=== PATIENT | male | born 1955 | race Caucasian/White ===

== ENCOUNTER 2019-10-14 07:31 | Emergency (ER) | payer OTHER ==
[2019-10-14 07:39] VITALS: BP 106/71; PULSE 65
[2019-10-14 08:10] LABS: CHLORIDE,CL 105 mmol/L (98-107); SODIUM,NA 140 mmol/L (136-145)
[2019-10-14] MEDS: Tamsulosin 0.4 MG Cap.ER PO ONE (09:02)
[2019-10-14] MEDS: Sodium Chloride 0.9% 1,000 ML IV ONE (09:03)
[2019-10-14] MEDS: Ketorolac 30 MG/ML SDV IVPUSH ONE (09:03)
--- NOTE | 2019-10-14 10:05 | EDM.PDOC ---
ED HPI GENERAL MEDICAL PROBLEM - General Chief Complaint: Flank Pain Stated Complaint: left low back flank pain Time Seen by Provider: 10/14/19 07:45 Source of Information: Reports: Patient History Limitations: Reports: No Limitations - History of Present Illness INITIAL COMMENTS - FREE TEXT/NARRATIVE: Left flank pain that started this AM Extends forward to groin Onset: Gradual Duration: Hour(s):, Getting Worse Location: Reports: Back, Pelvis Quality: Reports: Stabbing Severity: Moderate Treatments GLOBAL SAFETY OFFICER: Reports: NSAIDS Left Lower Flank Pain Score (Numeric/FACES): 10 - Related Data Allergies Allergy/AdvReac Type Severity Reaction Status Date / Time azithromycin Allergy UNKNOWN Verified 10/14/19 07:41 shellfish derived Allergy Airway Verified 10/14/19 07:43 Tightness Home Meds: Home Meds EPINEPHrine [Epipen] 0.3 mg IM ASDIRECTED PRN 04/11/15 [History] Montelukast Sodium 10 mg PO DAILY 04/11/15 [History] Thyroid,Pork [[place] Thyroid] 60 mg PO DAILY 04/11/15 [History] Metoprolol Succinate 50 mg PO DAILY 10/14/19 [History] Social & Family History - Tobacco Use Smoking Status *Q: Never Smoker Second Hand Smoke Exposure: No - Caffeine Use Caffeine Use: Reports: Coffee - Recreational Drug Use Recreational Drug Use: No ED ROS GENERAL - Review of Systems Review Of Systems: See Below : Reports: Flank Pain ED EXAM, RENAL/ - Physical Exam Exam: See Below Exam Limited By: No Limitations General Appearance: Mild Distress GI/Abdominal: Tender (Male) Exam: Other (Left flank pain) Course - Vital Signs Last Recorded V/S: Last Vital Signs Temp 97.7 F 10/14/19 07:32 Pulse 65 10/14/19 07:32 Resp 20 10/14/19 07:32 BP 106/71 10/14/19 07:32 Pulse Ox 98 10/14/19 07:32 - Orders/Labs/Meds Orders: Active Orders 24 hr Category Date Time Status Abdomen Pelvis wo Cont [CT] Stat Exams 10/14/19 08:27 Taken Labs: Laboratory Tests 10/14/19 10/14/19 10/14/19 Range/Units 08:00 08:00 08:13 WBC 7.2 (4.0-10.2) K/uL RBC 4.54 (4.33-5.41) M/uL Hgb 14.6 (13.1-16.8) g/dL Hct 43.4 (39.0-49.0) % MCV 95.6 (84.0-98.0) fL MCH 32.2 (28.2-33.3) pg MCHC 33.6 (31.7-36.0) g/dL RDW 12.3 (11.2-14.1) % Plt Count 235 (150-350) K/uL Neut % (Auto) 76.7 (45.0-80.0) % Lymph % (Auto) 17.5 (10.0-50.0) % [place] % (Auto) 5.2 (2.0-14.0) % Eos % (Auto) 0.3 (0.0-5.0) % Baso % (Auto) 0.3 (0.0-2.0) % Neut # (Auto) 5.51 (1.40-7.00) K/uL Lymph # (Auto) 1.26 (0.50-3.50) K/uL [place] # (Auto) 0.37 (0.00-1.00) K/uL Eos # (Auto) 0.02 (0.00-0.50) K/uL Baso # (Auto) 0.02 (0.00-0.20) K/uL Sodium 140 (136-145) mmol/L Potassium 4.3 (3.5-5.1) mmol/L Chloride 105 (98-107) mmol/L Carbon Dioxide 24.6 (21.0-32.0) mmol/L BUN 24 H (7-18) mg/dL Creatinine 1.15 (0.51-1.17) mg/dL Est Cr Clr Drug Dosing 60.10 mL/min Estimated GFR (MDRD) > 60 mL/min Glucose 167 H (74-106) mg/dL Calcium 8.9 (8.5-10.1) mg/dL Specimen Type Urinblad Urine Color Dark yellow Urine Appearance Slightly cloudy Urine pH 5.5 (5.0-9.0) Ur Specific [place] >= 1.030 (1.005-1.030) Urine Protein 30 H (NEGATIVE) mg/dL Urine Glucose (UA) Negative (NEGATIVE) mg/dL Urine Ketones 15 H (NEGATIVE) mg/dL Urine Occult Blood Large H (NEGATIVE) Urine Nitrite Negative (NEGATIVE) Urine Bilirubin Negative (NEGATIVE) Urine Urobilinogen 0.2 (0.2-1.0) E.U./dL Ur Leukocyte Esterase Negative (NEGATIVE) Urine RBC 50-75 H /HPF Urine WBC 0-5 /HPF Ur Epithelial Cells Rare /LPF Urine Bacteria Few (NONE TO FEW) /HPF Urine Mucus Moderate H (NEGATIVE) /LPF Meds: Medications Discontinued Medications Generic Name Dose Route Start Last Admin Trade Name Freq PRN Reason Stop Dose Admin Sodium Chloride 1,000 mls @ 1,000 mls/hr 10/14/19 08:56 10/14/19 09:03 Normal Saline IV 10/14/19 09:55 1,000 mls/hr .BOLUS ONE Administration Ketorolac Tromethamine 30 mg 10/14/19 08:56 10/14/19 09:03 Toradol IVPUSH 10/14/19 08:57 30 mg ONETIME ONE Administration Tamsulosin HCl 0.4 mg 10/14/19 08:57 10/14/19 09:02 Flomax PO 10/14/19 08:58 0.4 mg ONETIME ONE Administration - Re-Assessments/Exams Free Text/Narrative Re-Assessment/Exam: 10/14/19 09:59 CT: 4 X 6 mm stone proximal left ureter Pt given IVF, IV Toradol and PO Flomax in ER Departure - Departure Time of Disposition: 10:30 Disposition: Home, Self-Care 01 Clinical Impression: Kidney stone on left side - Discharge Information *PRESCRIPTION DRUG MONITORING PROGRAM REVIEWED*: Not Applicable *COPY OF PRESCRIPTION DRUG MONITORING REPORT IN PATIENT SHAUN: Not Applicable Instructions: Kidney Stones, [id number] Additional Instructions: Follow up in clinic Rx Flomax One pill daily Rx Hydrocodone 5/325 One pill every 6 hours as needed for pain Sepsis Event Note - Evaluation Sepsis Screening Result: No Definite Risk - Focused Exam Vital Signs: Vital Signs Temp Pulse Resp BP Pulse Ox 10/14/19 07:32 97.7 F 65 20 106/71 98 Date Exam was Performed: 10/14/19 Time Exam was Performed: 09:55 - My Orders Last 24 Hours: My Active Orders 10/14/19 08:27 Abdomen Pelvis wo Cont [CT] Stat - Assessment/Plan Last 24 Hours: My Active Orders 10/14/19 08:27 Abdomen Pelvis wo Cont [CT] Stat
== END 2019-10-14 10:21 | disposition home or self-care (01) ==
LOC: LL.ED 07:31
DX: N13.2 Hydronephrosis with renal and ureteral calculous obstruction (principal); Z88.1 Allergy status to other antibiotic agents; Z91.013 Allergy to seafood; Z79.899 Other long term (current) drug therapy
CPT/HCPCS: 36415; 74176; 80048; 81001; 85025; 96361; 96374; 99284-25; A9270-GY; J1885; J7030

== ENCOUNTER 2020-04-24 12:11 | Emergency (ER) | payer OTHER ==
[2020-04-24] MEDS ORDERED: valACYclovir 1,000 MG Tab PO ONE ×2 (12:25→12:26)
--- NOTE | 2020-04-24 12:29 | EDM.PDOC ---
ED HPI GENERAL MEDICAL PROBLEM - General Chief Complaint: Skin Complaint Stated Complaint: rash Time Seen by Provider: 04/24/20 12:24 Source of Information: Reports: Patient History Limitations: Reports: No Limitations - History of Present Illness INITIAL COMMENTS - FREE TEXT/NARRATIVE: Patient concerned that he is developing an acute shingles outbreak. History of multiple episodes in past/same area. Early discomfort/vesicles behind right neck base. No fevers or other complaints/changes on ROS. - Related Data Allergies Allergy/AdvReac Type Severity Reaction Status Date / Time azithromycin Allergy UNKNOWN Verified 04/24/20 12:11 shellfish derived Allergy Airway Verified 04/24/20 12:11 Tightness Home Meds: Home Meds EPINEPHrine [Epipen] 0.3 mg IM ASDIRECTED PRN 04/11/15 [History] Montelukast Sodium 10 mg PO DAILY 04/11/15 [History] Thyroid,Pork [[place] Thyroid] 60 mg PO DAILY 04/11/15 [History] Metoprolol Succinate 50 mg PO DAILY 10/14/19 [History] valACYclovir HCl [valACYclovir] 1,000 mg PO Q8H #20 tablet 04/24/20 [Rx] Past Medical History - Infectious Disease History Infectious Disease History: Reports: Chicken Pox, Measles, Mumps, Shingles Social & Family History - Caffeine Use Caffeine Use: Reports: Coffee ED ROS GENERAL - Review of Systems Review Of Systems: Comprehensive ROS is negative, except as noted in HPI. ED EXAM, SKIN/RASH Exam: See Below Exam Limited By: No Limitations General Appearance: Alert, WD/WN, No Apparent Distress Eye Exam: Bilateral Eye: EOMI, PERRL Throat/Mouth: Normal Voice, No Airway Compromise Head: Atraumatic, Normocephalic Neck: Supple Respiratory/Chest: No Respiratory Distress Neurological: Alert, Oriented, Normal Gait Location, Skin: Other (4 small macular-papular lesions noted near base of neck in right scapular area. Not clearly vesicular at this time. No drainage. No excoriation. ) Course - Orders/Labs/Meds Meds: Medications Discontinued Medications Generic Name Dose Route Start Last Admin Trade Name Freq PRN Reason Stop Dose Admin Valacyclovir HCl 1,000 mg 04/24/20 12:25 Valtrex PO 04/24/20 12:26 ONETIME ONE Valacyclovir HCl 1,000 mg 04/24/20 12:26 Valtrex PO 04/24/20 12:27 ONETIME ONE - Re-Assessments/Exams Free Text/Narrative Re-Assessment/Exam: 04/24/20 12:32 Suspected shingles episode in patient with history of shingles. 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 Follow up as needed. Departure - Departure Time of Disposition: 12:27 Disposition: Home, Self-Care 01 Condition: Good Clinical Impression: Shingles outbreak Qualifiers: Herpes zoster complications: without complications Qualified Code(s): B02.9 - Zoster without complications - Discharge Information *PRESCRIPTION DRUG MONITORING PROGRAM REVIEWED*: Not Applicable *COPY OF PRESCRIPTION DRUG MONITORING REPORT IN PATIENT SHAUN: Not Applicable Prescriptions: valACYclovir HCl [valACYclovir] 1,000 mg PO Q8H #20 tablet Referrals: Alley Matthew PA-C [Primary Care Provider] - Forms: ED Department Discharge Additional Instructions: Follow up as needed! Sepsis Event Note (ED) - Evaluation Sepsis Screening Result: No Definite Risk
[2020-04-24 13:23] VITALS: BP 127/88; PULSE 91
== END 2020-04-24 13:00 | disposition home or self-care (01) ==
LOC: LL.ED 12:11
DX: B02.9 Zoster without complications (principal); Z88.1 Allergy status to other antibiotic agents; Z91.013 Allergy to seafood
CPT/HCPCS: 99282; A9270